=== PATIENT | male | born 1940 | race African-American/Black ===

== ENCOUNTER 2022-07-25 13:17 | Emergency (ER) | payer MEDICARE, OTHER | END 2022-07-25 14:38 | disposition home or self-care (01) | LOC: BURERS 13:17 | DX: S62.521A Displaced fracture of distal phalanx of right thumb, initial encounter for closed fracture (principal); E78.00 Pure hypercholesterolemia, unspecified; E78.5 Hyperlipidemia, unspecified; I10 Essential (primary) hypertension; F17.210 Nicotine dependence, cigarettes, uncomplicated; W01.0XXA Fall on same level from slipping, tripping and stumbling without subsequent striking against object, initial encounter; Y92.009 Unspecified place in unspecified non-institutional (private) residence as the place of occurrence of the external cause | CPT/HCPCS: 29125 ==

== ENCOUNTER 2022-08-01 09:53 | Emergency (ER) | payer MEDICARE | END 2022-08-01 10:19 | disposition home or self-care (01) | LOC: BURERS 09:53 | DX: S62.501A Fracture of unspecified phalanx of right thumb, initial encounter for closed fracture (principal); E78.5 Hyperlipidemia, unspecified; E78.00 Pure hypercholesterolemia, unspecified; I10 Essential (primary) hypertension; F17.210 Nicotine dependence, cigarettes, uncomplicated | CPT/HCPCS: 99282 ==